=== PATIENT | male | born 1970 | race Caucasian/White ===

== ENCOUNTER → 2016-05-20 | Day surgery (SDC) | payer OTHER | LOC: RAD 12:35 | PROVIDERS: ATTEND Orthopaedic Surgery | PROC: BP0MZZZ Plain Radiography of Left Wrist (ICD-10-PCS; principal; 2016-05-20) | DX: M25.532 Pain in left wrist (principal) | CPT/HCPCS: 73222; 73115; 77002; A9576 ==

== ENCOUNTER 2016-07-22 06:03 | Day surgery (SDC) | payer OTHER ==
--- NOTE | 2016-07-21 08:37 | EKG REPORT ---
SEVERITY:- NORMAL ECG - SINUS RHYTHM : Confirmed by: Deanna Kendall 21-Jul-2016 08:36:39
[2016-07-21 08:53] LABS: ABSOLUTE EOSINOPHILS # (AUTO) 0.3 10^3/uL (0.0-0.6); ABSOLUTE LYMPHOCYTES (AUTO) 1.6 10^3/uL (0.5-4.7); ABSOLUTE MONOCYTES (AUTO) 0.5 10^3/uL (0.1-1.4); ABSOLUTE NEUT (AUTO) 3.8 10^3/uL (1.7-8.2); BASOPHILS % (AUTO) 0.5 % (0-2); EOSINOPHILS % (AUTO) 4.4 % (0-6); HEMATOCRIT 44.9 % (37.9-51.0); HEMOGLOBIN 15.1 g/dL (13.5-17.0); HGB HCT DIFFERENCE 0.4; LYMPHOCYTES % (AUTO) 26.2 % (13-45); MEAN CORPUSCULAR HEMOGLOBIN 29.8 pg (27.0-33.4); MEAN CORPUSCULAR HGB CONC 33.7 g/dL (32.0-36.0); MEAN CORPUSCULAR VOLUME 89 fl (80-97); MONOCYTES % (AUTO) 7.6 % (3-13); RED BLOOD COUNT 5.07 10^6/uL (4.35-5.55); RED CELL DISTRIBUTION WIDTH 13.2 % (11.5-14.0); SEGMENTED NEUTROPHILS % (AUTO) 61.3 % (42-78); WHITE BLOOD COUNT 6.1 10^3/uL (4.0-10.5)
[2016-07-21 08:56] LABS: APPEARANCE,URINE CLEAR; BILIRUBIN,URINE NEGATIVE (NEGATIVE); GLUCOSE, URINE NEGATIVE (NEGATIVE); KETONES,URINE NEGATIVE (NEGATIVE); LEUKOCYTE ESTERASE,URINE NEGATIVE (NEGATIVE); NITRITE,URINE NEGATIVE (NEGATIVE); PROTEIN,URINE NEGATIVE (NEGATIVE); URINE SPECIFIC GRAVITY 1.014; UROBILINOGEN,URINE NEGATIVE mg/dL (<2.0)
[2016-07-21 09:14] LABS: BLOOD UREA NITROGEN 24 mg/dL (7-20); CALCIUM 9.6 mg/dL (8.4-10.2); CARBON DIOXIDE 26 mmol/L (22-30); CREATININE RESULT 1.01 mg/dL (0.52-1.25); GLUCOSE 122 mg/dL (75-110); POTASSIUM 4.7 mmol/L (3.6-5.0); SODIUM 139.9 mmol/L (137-145)
[2016-07-21 09:16] LABS: ANION GAP 10 (5-19); CHLORIDE 104 mmol/L (98-107)
[~2016-07-22 06:03] MED LIST: CEFAZOLIN 2 GM/D5W RTU 2 GM/50 ML RTUPB IV PRN; LACTATED RINGERS 1000 ML IV PRN; LIDOCAINE 0.5% INJ-PF (5 MG/ML) 50 ML SDV SUBCUT PRN
[2016-07-22] MEDS ORDERED: BUPIVACAINE HCL 0.5 % INJ/PF 30 ML SDV ONE (06:42)
[2016-07-22] MEDS ORDERED: MIDAZOLAM 2 MG/2 ML INJ ONE (06:46)
[2016-07-22] MEDS ORDERED: FENTANYL CITRATE INJ/PF 250 MCG/5 ML AMPULE ONE (06:46)
[2016-07-22] MEDS ORDERED: HYDROMORPHONE HCL INJ/PF 2 MG/ML AMPULE ONE (06:46)
[2016-07-22] MEDS ORDERED: KETOROLAC TROMETHAMINE 60 MG/2 ML SDV ONE (06:46)
[2016-07-22] MEDS ORDERED: PROPOFOL INJ 200 MG/20 ML VIAL IV ONE (06:47)
[2016-07-22] MEDS ORDERED: ACETAMINOPHEN 100 ML IV ONE (06:47)
[2016-07-22] MEDS ORDERED: MORPHINE SULFATE 10 MG/ML INJ IV PRN (08:24)
[2016-07-22] MEDS ORDERED: PROMETHAZINE HCL INJ 25 MG/1 ML VIAL IV PRN (08:24)
[2016-07-22] MEDS ORDERED: MEPERIDINE HCL/PF INJ 25 MG/1 ML DISP.SYRIN IV PRN (08:24)
[2016-07-22] MEDS ORDERED: OXYCODONE-ACETAMINOPHEN 5-325 MG TABLET PO PRN ×3 (08:24→09:54)
[2016-07-22] MEDS ORDERED: ONDANSETRON HCL INJ/PF 4 MG/2 ML SDV IV PRN ×2 (08:24→09:54)
[2016-07-22] MEDS ORDERED: FENTANYL CITRATE INJ/PF 100 MCG/2 ML AMPUL IV PRN ×3 (08:24)
[2016-07-22] MEDS ORDERED: DIPHENHYDRAMINE HCL 50 MG/ML VIAL IV PRN (08:24)
[2016-07-22] MEDS ORDERED: HYDROMORPHONE HCL INJ/PF 2 MG/ML AMPULE IV PRN (09:54)
--- NOTE | 2016-07-22 09:57 | PDOC DISCHARGE SUMMARY ---
Discharge Summary (SDC) - Discharge Final Diagnosis: Right Wrist TFCC Tear, Ulnar Abutment Date of Surgery: 07/22/16 Discharge Date: 07/22/16 Condition: Good Treatment or Instructions: Schedule Follow Up w/ Dr. Peter Gregory @ [facility] to be seen in 10-14 days or as scheduled [place]: [place]: [place]: Keep splint clean/dry/intact. Ice and elevate May begin finger range of motion attempting to make full fist. Stool softener of choice when on pain medication. Prescriptions: Oxycodone HCl/Acetaminophen [Percocet 5-325 mg Tablet] 1 - 2 tab PO ASDIR PRN # 45 tablet PRN Reason: Discharge Diet: As Tolerated Respiratory Treatments at Home: Deep Breathing/Coughing Discharge Activity: No Lifting Over 10 Pounds, No Lifting/Push/Pulling Report the Following to Your Physician Immediately: Fever over 101 Degrees, Unusual Bleeding, Redness, Swelling, Warmth, Increased Soreness, Numbness, Tingling Sensation
--- NOTE | 2016-07-22 10:12 | Operative Report ---
Operative Report DATE OF SURGERY: 07/22/16 PREOPERATIVE DIAGNOSIS: Left Wrist TFCC Tear POSTOPERATIVE DIAGNOSIS: Left Wrist Central TFCC Tear, Ulnar Abutment OPERATION: Left wrist arthroscopy with debridement central TFCC tear, ulnar wafer resection, partial synovectomy SURGEON: JOSSE REDMAN ANESTHESIA: GA COMPLICATIONS: None ESTIMATED BLOOD LOSS: Minimal PROCEDURE: Indication for above procedure: 45-year-old male with long-standing history of left wrist pain. Patient MRI which demonstrated TFCC tear. We attempted conservative management including immobilization and injections which did provide short but not long-term relief. At that point we discussed treatment options including continued observation versus operative treatment. Given the possible findings of ulnar abutment we also discussed possible ulnar shortening osteotomy the patient preferred the more conservative approach initially. After discussing this the joint decision was made to proceed with operative intervention. Procedure In Detail: Patient was seen and evaluated in the preoperative holding area. The LEFT upper extremity was initialized and marked. Patient received 2g of Ancef IV for bacterial prophylaxis. Patient was taken back to the operative room where transferred to the operative table and placed under general anesthesia. Once they were adequately anesthetized a nonsterile tourniquet was placed on the upper extremity. A surgical team debriefing was performed ensuring all instrumentation was available, the surgical procedure was discussed with possible concerns reviewed. The upper extremity was prepped with chlorhexidine and alcohol and draped in a sterile fashion. A timeout was done identifying correct patient, procedure and extremity everyone in attendance agree with this and verbalized no concerns. Patient was placed in Acumed wrist distractor with 10 pounds of traction. The extremity was exsanguinated the tourniquet was inflated to 250 mmHg. A 3-4 portal was established and the arthroscope introduced into the radiocarpal joint. The triangulation a 4-5 portal and a 6U portal established. There was evidence of degeneration along the radial carpal joint however no full-thickness chondral damage was appreciated. Chondroplasty was performed along the radial carpal joint. The radioscaphocapitate, short and long radiolunate ligaments were identified without disruption. I then turned my attention to the ulnar aspect of the wrist. A central TFCC tear was identified. I then introduced the arthroscopic shaver and debrided the TFCC tear. With pronation of the wrist and ulnar deviation of was abutment of the ulna onto the lunate. Thus I used a small joint bur to perform a 2 mm wafer resection of the distal ulna. The wafer was completed in neutral, pronation and supination there was no evidence of residual abutment. There was hypertrophic tophi within the ulnar carpal articulation secondary to patient's known gouty arthritis. This tophi was resected. There is also evidence of a 3 mm loose body from the ulnocarpal articulation what which was removed in its entirety. There was evidence of synovitis along the prestyloid recess which was resected. I then carefully debrided the edges of the TFCC tear completing debridement with a arthroscopic ablator to a nice smooth edge. Once this was complete I turned my attention to the midcarpal joint. A midcarpal radial portal was established and the arthroscope introduced. Via triangulation a midcarpal ulnar portal was established. The arthroscopic shaver was introduced into the joint and partial synovectomy was performed along the midcarpal joint. Exploration of the midcarpal joint demonstrated no degeneration throughout the triquetral hamate, lunocapitate and scaphocapitate joints. Inspection of the scapholunate and lunotriquetral joints was performed there was mild step off of the lunotriquetral joint but no gapping of the middle portion joints with probing. The arthroscope was then removed. Skin incisions were closed with interrupted 4-0 nylon suture. 20 mL of 0.5% Marcaine without epinephrine was injected for postoperative pain control. Wrist splint with the wrist in neutral position. Sponge counts, instrument counts, needle counts counts were correct. Patient was then awoken from anesthesia. Transferred from the operating room table to the operating room stretcher. There was no intraoperative complications patient tolerated procedure well stable to PACU. Postoperative plan: Patient will follow-up in office in 10-14 days for wound check. We will obtain radiographs of the left wrist at that time.
[2016-07-22 12:15] VITALS: BP 101/69
== END 2016-07-22 12:00 | disposition home or self-care (01) ==
LOC: OROUT 06:03
PROVIDERS: ATTEND Orthopaedic Surgery
PROC: 0RBP4ZZ Excision of Left Wrist Joint, Percutaneous Endoscopic Approach (ICD-10-PCS; 2016-07-22)
PROC: 0RBP4ZZ Excision of Left Wrist Joint, Percutaneous Endoscopic Approach (ICD-10-PCS; 2016-07-22)
PROC: 0MQ64ZZ Repair Left Wrist Bursa and Ligament, Percutaneous Endoscopic Approach (ICD-10-PCS; principal; 2016-07-22 08:00)
DX: S63.592D Other specified sprain of left wrist, subsequent encounter (principal); X58.XXXD Exposure to other specified factors, subsequent encounter; M10.9 Gout, unspecified; Z79.899 Other long term (current) drug therapy
CPT/HCPCS: 93005; 36415; 85025; 80048; 81001; 71020; 93010; 29846; 29999; J2250; J1885; J1170; J2405; J2704; J0690; J0131; 1830; J3010